=== PATIENT | female | born 2000 | race Caucasian/White ===

== ENCOUNTER 2022-07-16 15:03 | Emergency (ER) | payer OTHER ==
[~2022-07-16] VITALS: Ht 157.5 cm; Wt 62.0 kg
[2022-07-16] MEDS ORDERED: PROPOFOL 200MG/20ML VIAL IV ONE (16:15)
[2022-07-16] MEDS ORDERED: MORPHINE SULFATE 10 MG/ML CPJ IM NR (16:15)
[2022-07-16] MEDS ORDERED: LIDOCAINE HCL/EPINEPHRINE 1%-EPI 1:100,000 20 ML VIAL INFIL NR (16:15)
[2022-07-16] MEDS ORDERED: IBUPROFEN 400MG TABLET PO NR (16:15)
[2022-07-16] MEDS ORDERED: LIDOCAINE HCL/EPINEPHRINE 1%-EPI 1:100,000 10 ML VIAL INFIL NR (17:00)
[2022-07-16] MEDS ORDERED: IBUP-2029 MT (17:59)
[2022-07-16] MEDS ORDERED: TOPUD MT (17:59)
[2022-07-16] MEDS ORDERED: MORPHINE SULFATE 4 MG/ML CPJ (NOT FOR IM USE) IV ONE (18:00)
[2022-07-16 18:34] VITALS: BP 122/68
== END 2022-07-16 18:37 ==
LOC: ER 15:03
DX: S62.102A Fracture of unspecified carpal bone, left wrist, initial encounter for closed fracture (principal); V49.49XA Driver injured in collision with other motor vehicles in traffic accident, initial encounter; Y93.89 Activity, other specified; Y92.89 Other specified places as the place of occurrence of the external cause; Y99.8 Other external cause status; Z87.440 Personal history of urinary (tract) infections
CPT/HCPCS: 70450; 73100; 73110; 96372; 96374; 99152; 99285; J2270; J2704; J3490; Z7610; A4565